=== PATIENT | female | born 1950 | race Caucasian/White ===

== ENCOUNTER 2022-06-24 11:00 | Observation (INO) ==
[2022-06-24 12:21] LABS: Hematocrit 39.6 % (35.3-44.9); Hemoglobin 12.6 g/dL (11.5-15.4); Mean Corpuscular HGB Conc 31.8 g/dL (31.6-35.5); Mean Corpuscular Hemoglobin 29.1 pg (28.0-33.3); Mean Corpuscular Volume 91.5 fL (83.0-100.0); Mean Platelet Volume 9.6 fL (9.4-12.4); Platelet Count 240 K/mcL (140-400); Red Blood Count 4.33 M/mcL (3.82-4.97); Red Cell Distribution Width 13.4 % (11.5-14.5); White Blood Count 7.9 K/mcL (4.3-11.1)
[2022-06-24 12:39] LABS: BUN/Creatinine Ratio 12 (6-26); Blood Urea Nitrogen 8 mg/dL (8-23); Calcium 8.6 mg/dL (8.6-10.3); Carbon Dioxide 30 mEq/L (23-29); Chloride 97 mEq/L (98-107); Glucose 211 mg/dL (70-105); Osmolality,Calculated 283 (280-300); Potassium 3.7 mEq/L (3.5-5.1); Sodium 134 mEq/L (136-145)
[2022-06-24] MEDS ORDERED: D5% in Water 1,000 ML IVC PRN (13:51)
[2022-06-24] MEDS ORDERED: *HR* Dextrose 50 % in Water (Syg) 50 ML SYRINGE IVP PRN (13:51)
[2022-06-24] MEDS ORDERED: Dextrose Gel 15 GM/37.5 ML TUBE PO PRN ×2 (13:51)
[2022-06-24] MEDS: *HR* Rivaroxaban 10 MG TABLET PO SCH (17:36)
[2022-06-25] MEDS: Metoprolol XL (24 HR) Succ 50 MG TAB.ER.24H PO SCH (07:36)
[2022-06-25] MEDS: lisinopriL 5 MG TABLET PO SCH (07:36)
[2022-06-25] MEDS ORDERED: Acetaminophen 325 MG TABLET PO PRN (08:08)
[2022-06-25] MEDS: *HR* Rivaroxaban 10 MG TABLET PO SCH (17:31)
[2022-06-25] MEDS: Gabapentin 400 MG CAPSULE PO SCH (20:17)
[2022-06-25] MEDS: PrednisoLONE Acetate 1% Opth 5 ML BOTTLE BOTH EYES SCH (21:28)
[2022-06-26] MEDS: Furosemide 40 MG TABLET PO SCH (08:01)
[2022-06-26] MEDS: *HR* Glimepiride 2 MG TABLET PO SCH (08:01)
[2022-06-26] MEDS: Gabapentin 400 MG CAPSULE PO SCH ×3 (08:01→20:35)
[2022-06-26] MEDS: lisinopriL 5 MG TABLET PO SCH (08:01)
[2022-06-26] MEDS: PrednisoLONE Acetate 1% Opth 5 ML BOTTLE BOTH EYES SCH ×2 (08:02→20:37)
[2022-06-26] MEDS: Metoprolol XL (24 HR) Succ 50 MG TAB.ER.24H PO SCH (08:02)
[2022-06-26] MEDS: Aspirin 81 MG TAB.CHEW PO SCH (08:02)
[2022-06-26] MEDS ORDERED: lisinopriL 5 MG TABLET PO SCH (09:00)
[2022-06-26] MEDS: *HR* Rivaroxaban 10 MG TABLET PO SCH (17:34)
[2022-06-27 06:24] LABS: BUN/Creatinine Ratio 12 (6-26); Blood Urea Nitrogen 8 mg/dL (8-23); Calcium 8.6 mg/dL (8.6-10.3); Carbon Dioxide 29 mEq/L (23-29); Chloride 101 mEq/L (98-107); Glucose 138 mg/dL (70-105); Magnesium 1.8 mg/dL (1.6-2.6); Osmolality,Calculated 285 (280-300); Potassium 3.7 mEq/L (3.5-5.1); Sodium 137 mEq/L (136-145)
[2022-06-27 06:53] VITALS: BP 120/72; PULSE 67; TEMP 98; O2SAT 98
[2022-06-27] MEDS: Aspirin 81 MG TAB.CHEW PO SCH (08:33)
[2022-06-27] MEDS: Gabapentin 400 MG CAPSULE PO SCH (08:33)
[2022-06-27] MEDS: lisinopriL 5 MG TABLET PO SCH (08:34)
[2022-06-27] MEDS: Furosemide 40 MG TABLET PO SCH (08:34)
[2022-06-27] MEDS: Metoprolol XL (24 HR) Succ 50 MG TAB.ER.24H PO SCH (08:34)
[2022-06-27] MEDS: *HR* Glimepiride 2 MG TABLET PO SCH (08:37)
== END 2022-06-27 11:13 | disposition home or self-care (01) ==
LOC: 3BNU
PROVIDERS: ADMIT Internal Medicine Clinical Cardiac Electrophysiology; ATTEND Internal Medicine Clinical Cardiac Electrophysiology